=== PATIENT | male | born 1985 | race Caucasian/White ===

== ENCOUNTER 2021-12-25 15:13 | Emergency (ER) | payer MEDICAID ==
[~2021-12-25] VITALS: Ht 180.3 cm; Wt 91.6 kg
--- NOTE | 2021-12-25 15:38 | NUR ---
To ER bed 8, c/o abdominal pain, no apetite, nausea no vomiting x 4 days, aaox3, breathing even and non labored, connected to monitor, awaiting md crenshaw
[2021-12-25] MEDS ORDERED: ONDANSETRON HCL/PF 4 MG/2 ML VIAL ONE (16:14)
[2021-12-25] MEDS ORDERED: IV NS 0.9% 1,000 ML BAG IV ONE (16:30)
[2021-12-25] MEDS ORDERED: ONDANSETRON HCL/PF 4 MG/2 ML VIAL IVP ONE (16:30)
[2021-12-25 16:37] LABS: BASOPHILS # (AUTO) 0.1 K/uL (0.0-0.2); BASOPHILS % (AUTO) 0.9 % (0.0-2.0); EOSINOPHILS % (AUTO) 2.5 % (0.0-6.0); HEMATOCRIT 45 % (39-51); HEMOGLOBIN 15.3 g/dL (13.5-17.5); LYMPHOCYTES # (AUTO) 2.3 K/uL (0.8-4.8); MEAN CORPUSCULAR HGB CONC 34 g/dl (31.0-36.0); MEAN CORPUSCULAR VOLUME 90 fL (80-96); MONOCYTES # (AUTO) 0.6 K/uL (0.1-1.30); NEUTROPHILS # (AUTO) 4.9 K/uL (1.8-8.9); NEUTROPHILS % (AUTO) 60.6 % (43.0-81.0); PLATELET COUNT (AUTO) 256 K/uL (150-450); RED BLOOD CELL COUNT(AUTO) 5.01 MIL/uL (4.5-6.0); WHITE BLOOD COUNT (AUTO) 8.1 K/uL (4.3-11.0)
[2021-12-25 16:49] LABS: CALCIUM, SERUM 9.7 mg/dL (8.5-10.1); CREATININE 1.1 mg/dL (0.6-1.3); POTASSIUM 3.8 mmol/L (3.5-5.1)
[2021-12-25 16:55] LABS: ALBUMIN 4.3 g/dL (3.4-5.0); BILIRUBIN,DIRECT 0.3 mg/dL (0.0-0.2); BILIRUBIN,TOTAL 1.1 mg/dL (0.2-1.0); TOTAL PROTEIN, SERUM 7.9 g/dL (6.4-8.2)
[2021-12-25] MEDS ORDERED: ONDA4TAB5 PO (17:45)
[2021-12-25 17:54] VITALS: BP 132/88
--- NOTE | 2021-12-25 17:54 | NUR ---
IV removed. Catheter intact and site benign. Pressure and 4x4 applied to site. No bleeding noted.Patient discharged to home in stable condition. Written and verbal after care instructions given. Patient verbalizes understanding of instruction.
== END 2021-12-25 17:55 | disposition home or self-care (01) ==
LOC: ER 15:19
DX: R10.9 Unspecified abdominal pain (principal); Z91.012 Allergy to eggs
CPT/HCPCS: 36415; 80048; 80076; 85025; 96361; 96374; 99283; J2405; J7030